=== PATIENT | male | born 2000 | race Caucasian/White ===

== ENCOUNTER 2020-11-25 21:24 | Emergency (ER) | payer BC ==
[~2020-11-25] VITALS: Ht 175.3 cm; Wt 70.3 kg
[2020-11-25] MEDS ORDERED: IBUPROFEN 800800 MG PO (22:30)
[2020-11-25 23:15] VITALS: BP 154/76
== END 2020-11-25 23:15 | disposition home or self-care (01) ==
LOC: M.ERS 21:24
DX: S70.01XA Contusion of right hip, initial encounter (principal); W01.0XXA Fall on same level from slipping, tripping and stumbling without subsequent striking against object, initial encounter; Y93.K1 Activity, walking an animal; Y92.89 Other specified places as the place of occurrence of the external cause; Y99.8 Other external cause status